=== PATIENT | female | born 1965 | race Hispanic/Latino ===

== ENCOUNTER 2016-10-23 23:03 | Emergency (ER) | payer BC ==
[2016-10-23 23:03] VITALS: BMI 30.7
[2016-10-23 23:10] VITALS: RESP 18; TEMP 97.9
[2016-10-23] MEDS ORDERED: Sodium Chloride 0.9% 1,000 ML IV STA (23:27)
[2016-10-23] MEDS ORDERED: DiphenhydrAMINE 50 mg/ml Inj IVP STA (23:27)
--- NOTE | 2016-10-24 01:21 | ED PDOC ---
Arrival/HPI - General Chief Complaint: Allergic Reaction Time Seen by Provider: 10/23/16 23:21 Historian: Patient - History of Present Illness Narrative History of Present Illness (Text): 10/24/16 01:18 51yr old female presents today with allergic reaction. pt states just prior to arrival she took a prevacid because she was having some heart burn. pt states within minutes after taking the medication she developed pruritis erythematous rash from head to toe. pt states she took unknown otc allergy medication before coming to ER. no CP or SOB. no vomiting/diarrhea. no difficulty breathing or swallowing. no new soaps, lotions, detergents or perfumes. no other complaints. Time/Duration: Prior to Arrival Symptom Onset: Sudden Symptom Course: Unchanged Quality: Other (no pain) Past Medical History - Provider Review Nursing Documentation Reviewed: Yes - Travel History Have you recently traveled outside [place] w/in the past 3 mons?: No - Tetanus Immunization Tetanus Immunization: Unknown - Cardiac Hx Hypertension: Yes - Endocrine/Metabolic Hx Diabetes Mellitus Type 2: Yes Other/Comment: Neuropathy - Psychiatric Hx Anxiety: Yes Hx Substance Use: No - Surgical History Hx Section: Yes (x 2) Hx Cholecystectomy: Yes Hx Tonsillectomy: Yes - Anesthesia Hx Anesthesia: No - Suicidal Assessment Feels Threatened In Home Enviroment: No Family/Social History - Physician Review Nursing Documentation Reviewed: Yes Family/Social History: Unknown Family HX Smoking Status: Never Smoked Hx Alcohol Use: No Hx Substance Use: No Hx Substance Use Treatment: No Allergies/Home Meds Allergies/Adverse Reactions: Allergies lansoprazole [From Prevacid] Allergy (Verified 10/24/16 01:28) RASH Rash, redness, hives, itching Home Medications: Home Meds Medication Instructions Recorded Confirmed Alprazolam [Xanax] 0.25 mg PO PRN PRN 05/05/14 02/03/16 Metformin Hydrochloride [Metformin] 1,000 mg PO BID 05/05/14 02/03/16 Atorvastatin [Lipitor] 10 mg PO DAILY 03/30/15 02/03/16 Nebivolol [Bystolic] 5 mg PO DAILY 02/03/16 02/03/16 Review of Systems - Review of Systems Constitutional: absent: Fatigue, Fevers ENT: absent: Sore Throat, Sinus Congestion Respiratory: absent: SOB, Cough Cardiovascular: absent: Chest Pain, Palpitations Gastrointestinal: absent: Abdominal Pain, Nausea, Vomiting Genitourinary Female: absent: Dysuria Musculoskeletal: absent: Arthralgias Skin: Rash, Pruritis Neurological: absent: Headache, Dizziness Psychiatric: absent: Anxiety, Depression Physical Exam Vital Signs Reviewed: Yes Vital Signs Temp Pulse Resp BP Pulse Ox 10/23/16 23:23 95 H 18 141/64 100 10/23/16 23:07 97.9 F 105 H 18 138/74 99 Temperature: Afebrile Blood Pressure: Normal Pulse: Tachycardic Respiratory Rate: Normal Appearance: Positive for: Well-Appearing, Non-Toxic, Comfortable Pain Distress: None Mental Status: Positive for: Alert and Oriented X 3 - Systems Exam Head: Present: Atraumatic Conjunctiva: Present: Normal Mouth: Present: Moist Mucous Membranes Pharnyx: Present: Normal. No: ERYTHEMA, EXUDATE, Uvular Deviation, Muffled/ Hoarse Voice, Strider, Soft Palate/Uvular Edema Nose (External): Present: Atraumatic Neck: Present: Normal Range of Motion Respiratory/Chest: Present: Clear to Auscultation, Good Air Exchange. No: Respiratory Distress, Accessory Muscle Use, Wheezes, Retracting, Rhonchi, Tachypneic Cardiovascular: Present: Regular Rate and Rhythm Abdomen: No: Tenderness Upper Extremity: Present: Normal ROM Lower Extremity: Present: Normal ROM Neurological: Present: GCS=15 Skin: Present: Warm, Dry, Rashes (diffuse blanching erythema with pinpoint papules noted to face, arms, chest, neck, back, legs, abdomen. ) Psychiatric: Present: Alert, Oriented x 3 Medical Decision Making ED Course and Treatment: 10/24/16 01:21 Patient is nontoxic well-appearing in no distress with stable vital signs no angioedema. Lungs are clear to auscultation bilaterally there is no wheezing noted. The airway is patent Benadryl 25 mg IV Solu-Medrol 125 mg IV Patient reassessment: After medications patient is feeling much better the lungs are clear to auscultation bilaterally the airway is patent the patient is speaking in full sentences. Rash has greatly improved. vitals stable. I advised taking Benadryl every 6 hours as needed for itch as well as prednisone daily x4 days. Advised patient to follow up with primary care physician within the next 2 days and return if symptoms worsen persist or if new symptoms develop Patient verbalizes understanding of discharge instructions and need for immediate followup. all aspects of this case were discussed the attending of record. Impression :Allergic reaction Benadryl every 6 hours as needed for itch Prednisone once daily x4 days Pepcid one tablet daily Follow up with the primary care physician tomorrow Return if symptoms worsen persist or if new symptoms develop: Shortness of breath, feeling of throat closing, difficulty speaking or any other concerning symptoms develop - Medication Orders Current Medication Orders: Discontinued Medications Diphenhydramine HCl (Benadryl) 25 mg IVP STAT STA Stop: 10/23/16 23:28 Last Admin: 10/23/16 23:39 Dose: 25 mg Sodium Chloride (Sodium Chloride 0.9%) 1,000 mls @ 999 mls/hr IV .Q1H1M STA Stop: 10/24/16 00:27 Last Admin: 10/23/16 23:39 Dose: 999 mls/hr Methylprednisolone (Solu-Medrol) 125 mg IVP STAT STA Stop: 10/23/16 23:28 Last Admin: 10/23/16 23:39 Dose: 125 mg Disposition/Present on Arrival - Present on Arrival Any Indicators Present on Arrival: No History of DVT/PE: No History of Uncontrolled Diabetes: No Urinary Catheter: No History of Decub. Ulcer: No History Surgical Site Infection Following: None - Disposition Have Diagnosis and Disposition been Completed?: Yes Diagnosis: Allergic reaction Disposition: HOME/ ROUTINE Disposition Time: 01:23 Patient Plan: Discharge Patient Problems: Current Active Problems Problem Status Onset Allergic reaction Acute Condition: GOOD Discharge Instructions (ExitCare): General Allergic Reaction (ED) Additional Instructions: Benadryl every 6 hours as needed for itch Prednisone once daily x4 days Pepcid one tablet daily Follow up with the primary care physician tomorrow Return if symptoms worsen persist or if new symptoms develop: Shortness of breath, feeling of throat closing, difficulty speaking or any other concerning symptoms develop Prescriptions: DiphenhydrAMINE [Benadryl] 25 mg PO Q6H #20 cap Famotidine [Pepcid] 20 mg PO DAILY #30 tab predniSONE [predniSONE Tab] 3 tab PO DAILY #12 tab Referrals: Ángel Hernandez MD [Family Provider] - Follow up with primary Gerald Bird MD [Staff Provider] - Follow up with primary
[2016-10-24 01:27] VITALS: BP 119/71; PULSE 85; O2SAT 98
== END 2016-10-24 01:46 | disposition home or self-care (01) ==
LOC: ED 23:03
DX: T78.49XA Other allergy, initial encounter (principal); X58.XXXA Exposure to other specified factors, initial encounter
CPT/HCPCS: 96361; 96374; 96375; 99285; J1200; J2930; J7040

== ENCOUNTER 2017-01-31 01:22 | Emergency (ER) | payer BC ==
[2017-01-31 01:29] VITALS: BMI 37.2
[2017-01-31 01:32] VITALS: RESP 18; TEMP 98.2
--- NOTE | 2017-01-31 01:47 | ED PDOC ---
Arrival/HPI - General Chief Complaint: Palpitations Time Seen by Provider: 01/31/17 01:28 Historian: Patient - History of Present Illness Narrative History of Present Illness (Text): 01/31/17 01:46 Leah Bianchi is a 52 year old female, whose past medical history includes diabetes and hypertension, who presents to the ED complaining of palpitations. Patient states she woke up tonight feeling anxious with rapid heart rate, felt nervous and sweaty. Patient took Xanax and felt better. Patient states symptoms were secondary to anxiety, and notes she has experienced symptoms in the past. Patient denies any chest pain, shortness of breath, fever, chills, abdominal pain, nausea, vomiting, diarrhea, urinary symptoms, back pain, neck pain, headache, dizziness, or any other complaints. Patient feels fine currently. PMD: Dr. Hernandez Area Field Worker: Dr. Kumar Time/Duration: Other (tonight) Symptom Onset: Gradual Symptom Course: Improving Activities at Onset: Light Context: Home Past Medical History - Provider Review Nursing Documentation Reviewed: Yes - Tetanus Immunization Tetanus Immunization: Unknown - Cardiac Hx Hypertension: Yes - Endocrine/Metabolic Hx Diabetes Mellitus Type 2: Yes Other/Comment: Neuropathy - Psychiatric Hx Anxiety: Yes Hx Substance Use: No - Surgical History Hx Section: Yes (x 2) Hx Cholecystectomy: Yes Hx Tonsillectomy: Yes - Anesthesia Hx Anesthesia: No - Suicidal Assessment Feels Threatened In Home Enviroment: No Family/Social History - Physician Review Nursing Documentation Reviewed: Yes Family/Social History: Unknown Family HX Smoking Status: Never Smoked Hx Alcohol Use: No Hx Substance Use: No Hx Substance Use Treatment: No Allergies/Home Meds Allergies/Adverse Reactions: Allergies lansoprazole [From Prevacid] Allergy (Verified 10/24/16 01:28) RASH Rash, redness, hives, itching Home Medications: Home Meds Medication Instructions Recorded Confirmed Alprazolam [Xanax] 0.25 mg PO PRN PRN 05/05/14 01/31/17 Metformin Hydrochloride [Metformin] 1,000 mg PO BID 05/05/14 01/31/17 Atorvastatin [Lipitor] 10 mg PO DAILY 03/30/15 01/31/17 Nebivolol [Bystolic] 5 mg PO DAILY 02/03/16 01/31/17 Review of Systems - Physician Review All systems were reviewed & negative as marked: Yes - Review of Systems Constitutional: Normal. absent: Fevers Eyes: Normal ENT: Normal Respiratory: Normal. absent: SOB, Cough Cardiovascular: Palpitations. absent: Chest Pain Gastrointestinal: Normal. absent: Abdominal Pain, Diarrhea, Nausea, Vomiting Genitourinary Female: Normal. absent: Dysuria, Frequency, Hematuria, Urine Output Changes Musculoskeletal: Normal. absent: Back Pain, Neck Pain Skin: Normal. absent: Rash Neurological: Normal. absent: Headache, Dizziness Endocrine: Normal Hemo/Lymphatic: Normal Psychiatric: Anxiety Physical Exam Vital Signs Reviewed: Yes Vital Signs Temp Pulse Resp BP Pulse Ox 01/31/17 03:59 86 18 136/84 99 01/31/17 01:29 98.2 F 98 H 18 146/82 100 Temperature: Afebrile Blood Pressure: Normal Pulse: Regular Respiratory Rate: Normal Appearance: Positive for: Well-Appearing, Non-Toxic, Comfortable Pain Distress: None Mental Status: Positive for: Alert and Oriented X 3 - Systems Exam Head: Present: Atraumatic, Normocephalic Pupils: Present: PERRL Extroacular Muscles: Present: EOMI Conjunctiva: Present: Normal Mouth: Present: Moist Mucous Membranes Neck: Present: Normal Range of Motion Respiratory/Chest: Present: Clear to Auscultation, Good Air Exchange. No: Respiratory Distress, Accessory Muscle Use Cardiovascular: Present: Regular Rate and Rhythm, Normal S1, S2. No: Murmurs Abdomen: Present: Normal Bowel Sounds. No: Tenderness, Distention, Peritoneal Signs Back: Present: Normal Inspection Upper Extremity: Present: Normal Inspection. No: Cyanosis, Edema Lower Extremity: Present: Normal Inspection. No: Edema Neurological: Present: GCS=15, CN II-XII Intact, Speech Normal Skin: Present: Warm, Dry, Normal Color. No: Rashes Psychiatric: Present: Alert, Oriented x 3, Normal Insight, Normal Concentration Medical Decision Making ED Course and Treatment: 01/31/17 01:47 Impression: 52 year old female c/o palpitations tonight. Differential Diagnosis included but are not limited to: anxiety Plan: -- EKG -- CXR -- Labs, cardiac enzymes -- Reassess and disposition Progress Notes: Reviewed EKG, NSR at [address]-segment elevations or depressions, no T-wave inversions, normal intervals. 01/31/17 03:25 Reviewed radiology, CXR shows no acute processes. 01/31/17 03:30 Pt was observed on the monitor while in the ER without any recurrence in symptoms. Pt states she would prefer to f/u with her PMD this week as scheduled. I have discussed the results and plan with the patient, who expresses understanding. Patient is stable for discharge. Patient was instructed to follow up with physician/clinic in 1-2 days as scheduled or return if symptoms persist/worsen or new concerning symptoms arise. - Lab Interpretations Lab Results: 01/31/17 02:29 01/31/17 02:29 Lab Results 01/31/17 02:29: WBC 10.9, RBC 4.33, Hgb 12.5, Hct 36.6, MCV 84.5, MCH 28.9, MCHC 34.2, RDW 13.6, Plt Count 304, MPV 8.8 01/31/17 02:29: Sodium 139, Potassium 3.8, Chloride 102, Carbon Dioxide 26, Anion Gap 15, BUN 10, Creatinine 0.7, Est GFR ( Amer) > 60, Est GFR (Non- Af Amer) > 60, Random Glucose 150 H, Calcium 8.9, Total Bilirubin 0.5, AST 33, ALT 39, Alkaline Phosphatase 59, Lactate Dehydrogenase 383, Total Creatine Kinase 25 L, Troponin I < 0.01, Total Protein 6.6, Albumin 4.0, Globulin 2.7, Albumin/Globulin Ratio 1.5 01/31/17 02:29: PT 9.9, INR 0.92 L, APTT 25.0 I have reviewed the lab results: Yes - RAD Interpretation Radiology Orders: 01/31/17 01:53 CHEST PORTABLE [RAD] Stat Restaurant Expeditor: ED Physician - EKG Interpretation Interpreted by ED Physician: Yes Type: 12 lead EKG - Scribe Statement The provider has reviewed the documentation as recorded by the Margoibjosette Villanueva All medical record entries made by the Margoibjosette were at my direction and personally dictated by me. I have reviewed the chart and agree that the record accurately reflects my personal performance of the history, physical exam, medical decision making, and the department course for this patient. I have also personally directed, reviewed, and agree with the discharge instructions and disposition. Disposition/Present on Arrival - Present on Arrival Any Indicators Present on Arrival: No History of DVT/PE: No History of Uncontrolled Diabetes: No Urinary Catheter: No History of Decub. Ulcer: No History Surgical Site Infection Following: None - Disposition Have Diagnosis and Disposition been Completed?: Yes Diagnosis: Palpitations, Anxiety Disposition: HOME/ ROUTINE Disposition Time: 03:36 Patient Plan: Discharge Condition: GOOD Discharge Instructions (ExitCare): Palpitations (ED), Anxiety (ED) Additional Instructions: Continue your prescribed meds/follow up with your doctor this week as scheduled/ any recurrent symptoms return to the emergency room Forms: [email or web address] ([place])
[2017-01-31 02:37] LABS: HEMATOCRIT 36.6 % (36.0-48.0); MEAN CELL VOLUME 84.5 fl (80.0-105.0); MEAN CORPUSCULAR HEMOGLOBIN 28.9 pg (25.0-35.0); MEAN CORPUSCULAR HGB CONC 34.2 g/dl (31.0-37.0); MEAN PLATELET VOLUME 8.8 fl (7.0-11.0); RED CELL DISTRIBUTION WIDTH 13.6 % (11.5-14.5); WHITE BLOOD COUNT 10.9 10^3/ul (4.5-11.0)
[2017-01-31 02:43] LABS: ALB/GLOB RATIO 1.5 (1.1-1.8); ALKALINE PHOSPHATASE 59 U/L (38-126); ALT/SGPT 39 U/L (7-56); AST/SGOT 33 U/L (14-36); BILIRUBIN,TOTAL 0.5 mg/dL (0.2-1.3); BLOOD UREA NITROGEN 10 mg/dL (7-21); CALCIUM 8.9 mg/dL (8.4-10.5); CARBON DIOXIDE 26 mmol/L (21-33); CHLORIDE 102 mmol/L (98-107); GFR AFRICAN-AMERICAN > 60; GLUCOSE,RANDOM 150 mg/dL (70-110); POTASSIUM 3.8 mmol/L (3.6-5.0); SODIUM 139 mmol/L (132-148); TOTAL PROTEIN 6.6 g/dL (5.8-8.3)
[2017-01-31 02:44] LABS: INR 0.92 (0.93-1.08)
[2017-01-31 03:03] LABS: TROPONIN I < 0.01 ng/mL
[2017-01-31 03:59] VITALS: BP 136/84; PULSE 86; O2SAT 99
--- NOTE | 2017-01-31 10:55 | RAD ---
HISTORY: palpitations COMPARISON: Comparison chest 01/21/2016 FINDINGS: LUNGS: No active pulmonary disease. PLEURA: No significant pleural effusion identified, no pneumothorax apparent. CARDIOVASCULAR: Normal. OSSEOUS STRUCTURES: No significant abnormalities. VISUALIZED UPPER ABDOMEN: Normal. OTHER FINDINGS: None. IMPRESSION: No active disease.
--- NOTE | 2017-01-31 11:46 | CARD ---
APPROVED REPORT EKG Measurement Heart [id number] <Conclusion> Normal sinus rhythm Normal ECG
== END 2017-01-31 03:59 | disposition home or self-care (01) ==
LOC: ED 01:22
DX: R00.2 Palpitations (principal); F41.9 Anxiety disorder, unspecified; I10 Essential (primary) hypertension; E11.9 Type 2 diabetes mellitus without complications

== ENCOUNTER 2018-05-08 23:48 | Emergency (ER) | payer BC ==
[2018-05-08 23:48] VITALS: BMI 37.2
[2018-05-09 00:03] VITALS: PULSE 85
--- NOTE | 2018-05-09 00:31 | ED PDOC ---
Arrival/HPI - General Chief Complaint: Palpitations Time Seen by Provider: 05/08/18 23:54 Historian: Patient - History of Present Illness Narrative History of Present Illness (Text): 05/09/18 00:15 01/31/17 01:46 53 year old female, whose past medical history includes diabetes,anxiety, hypertension, who presents to the emergency department complaining of palpitations. Patient reports she his currently on a holter monitor for PVC's . Patient reports she checked her heart rate which was 100 and was anxious and worried, so she came to the ER for evaluation. She reports she had a stress test and echo done last year which were within normal limits. States she was told by her doctors that there was no concern as this can be a normal occurrence. Patient, however,states it makes her anxious. Patient denies any fever, chills, chest pain, shortness of breath, nausea, vomiting, diarrhea, urinary symptoms, back pain, neck pain, headache, dizziness, or any other complaints. PMD: Dr. Hickman Temperature Logging Operator: Dr. Kumar but switching to Dr. Gomez Time/Duration: 1 hour Symptom Onset: Sudden Symptom Course: Intermittent Activities at Onset: Light Context: Home Past Medical History - Provider Review Nursing Documentation Reviewed: Yes - Infectious Disease Hx of Infectious Diseases: None - Tetanus Immunization Tetanus Immunization: Unknown - Cardiac Hx Hypertension: Yes - Endocrine/Metabolic Hx Diabetes Mellitus Type 2: Yes Other/Comment: Neuropathy - Psychiatric Hx Anxiety: Yes Hx Substance Use: No - Surgical History Hx Section: Yes (x 2) Hx Cholecystectomy: Yes Hx Tonsillectomy: Yes - Anesthesia Hx Anesthesia: No - Suicidal Assessment Feels Threatened In Home Enviroment: No Family/Social History - Physician Review Nursing Documentation Reviewed: Yes Family/Social History: No Known Family HX Smoking Status: Never Smoked Hx Alcohol Use: No Hx Substance Use: No Hx Substance Use Treatment: No Allergies/Home Meds Allergies/Adverse Reactions: Allergies lansoprazole [From Prevacid] Allergy (Verified 05/09/18 00:03) RASH Rash, redness, hives, itching Home Medications: Home Meds Medication Instructions Recorded Confirmed Alprazolam [Xanax] 0.25 mg PO PRN PRN 05/05/14 01/31/17 Metformin Hydrochloride [Metformin] 1,000 mg PO BID 05/05/14 01/31/17 Atorvastatin [Lipitor] 10 mg PO DAILY 03/30/15 01/31/17 Nebivolol [Bystolic] 5 mg PO DAILY 02/03/16 01/31/17 Review of Systems - Physician Review All systems were reviewed & negative as marked: Yes - Review of Systems Constitutional: absent: Fevers, Other (Chills) Respiratory: absent: SOB Cardiovascular: Palpitations. absent: Chest Pain Gastrointestinal: absent: Diarrhea, Nausea, Vomiting Genitourinary Female: absent: Dysuria, Frequency, Hematuria Musculoskeletal: absent: Back Pain, Neck Pain Neurological: absent: Headache, Dizziness Psychiatric: Anxiety Physical Exam Vital Signs Reviewed: Yes Vital Signs Pulse Resp BP Pulse Ox 05/09/18 00:00 85 20 138/78 100 Temperature: Afebrile Blood Pressure: Normal Pulse: Regular Respiratory Rate: Normal Appearance: Positive for: Well-Appearing, Non-Toxic, Comfortable Pain Distress: None Mental Status: Positive for: Alert and Oriented X 3 - Systems Exam Head: Present: Atraumatic, Normocephalic Pupils: Present: PERRL Extroacular Muscles: Present: EOMI Conjunctiva: Present: Normal Mouth: Present: Moist Mucous Membranes Neck: Present: Normal Range of Motion Respiratory/Chest: Present: Clear to Auscultation, Good Air Exchange. No: Respiratory Distress, Accessory Muscle Use Cardiovascular: Present: Regular Rate and Rhythm, Normal S1, S2. No: Murmurs Abdomen: No: Tenderness, Distention, Peritoneal Signs Back: Present: Normal Inspection Upper Extremity: Present: Normal Inspection. No: Cyanosis, Edema Lower Extremity: Present: Normal Inspection. No: Edema Neurological: Present: GCS=15, CN II-XII Intact, Speech Normal Skin: Present: Warm, Dry, Normal Color. No: Rashes Psychiatric: Present: Alert, Oriented x 3, Normal Insight, Normal Concentration Medical Decision Making ED Course and Treatment: 05/09/18 00:15 Impression: 53 year old female presents complaining of reoccurring palpitations and describes them as a fluttering sensation. Patient is currently on a holter monitor for PVC's. Plan: -- EKG -- Labs -- Chest X-ray -- Reassess and disposition Prior Visits: Notes and results from previous visits were reviewed. Progress Notes: 05/09/18 00:16 EKG shows NSR at 91 BPM with occasional PVCs. No acute changes. Interpreted by me. 05/09/18 01:10 CXR Impression: As read by me, no acute process. 05/09/18 02:24 patient states she feels fine after having taken her Xanax earlier. Patient is in no acute distress. I have discussed the results and plan with the patient, who expresses understanding. Patient in agreement with plan to be discharged home. Patient is stable for discharge. Patient was instructed to follow up with physician or return if symptoms worsen or new concerning symptoms arise. - Scribe Statement The provider has reviewed the documentation as recorded by the Scribe Khanh Samson Provider Scribe Attestation: All medical record entries made by the Scribe were at my direction and personally dictated by me. I have reviewed the chart and agree that the record accurately reflects my personal performance of the history, physical exam, medical decision making, and the department course for this patient. I have also personally directed, reviewed, and agree with the discharge instructions and disposition. Disposition/Present on Arrival - Present on Arrival Any Indicators Present on Arrival: No History of DVT/PE: No History of Uncontrolled Diabetes: No Urinary Catheter: No History of Decub. Ulcer: No History Surgical Site Infection Following: None - Disposition Have Diagnosis and Disposition been Completed?: Yes Diagnosis: Heart palpitations, Anxiety Disposition: HOME/ ROUTINE Disposition Time: 02:22 Patient Plan: Discharge Condition: GOOD Discharge Instructions (ExitCare): Palpitations (DC) Additional Instructions: Follow up with your doctor this week/if any worsening symptoms return to the emergency room Referrals: Sudhir Hickman MD [Primary Care Provider] - Follow up with primary Forms: [employer] ([place])
[2018-05-09 00:57] LABS: HEMOGLOBIN 12.5 g/dL (12.0-16.0); MEAN CELL VOLUME 82.9 fl (80.0-105.0); MEAN CORPUSCULAR HEMOGLOBIN 27.7 pg (25.0-35.0); MEAN CORPUSCULAR HGB CONC 33.4 g/dl (31.0-37.0); MEAN PLATELET VOLUME 8.9 fl (7.0-11.0); RBC 4.51 10^6/uL (3.5-6.1); RED CELL DISTRIBUTION WIDTH 13.4 % (11.5-14.5); WHITE BLOOD COUNT 12.9 10^3/uL (4.5-11.0)
[2018-05-09 01:05] LABS: INR 0.91; PARTIAL THROMBOPLASTIN TIME 29.3 Seconds (25.1-36.5); PROTHROMBIN TIME 10.3 SECONDS (9.4-12.5)
[2018-05-09 01:08] LABS: ALB/GLOB RATIO 1.4 (1.1-1.8); ALBUMIN 4.2 g/dL (3.0-4.8); ALT/SGPT 37 U/L (7-56); AST/SGOT 21 U/L (14-36); BLOOD UREA NITROGEN 13 mg/dL (7-21); CALCIUM 8.8 mg/dL (8.4-10.5); GFR NON-AFRICAN AMERICAN > 60
[2018-05-09 01:25] LABS: TROPONIN I < 0.01 ng/mL
[2018-05-09 02:45] VITALS: BP 121/63; RESP 18; TEMP 98.2; O2SAT 98
--- NOTE | 2018-05-09 10:18 | RAD ---
Date of service: 05/09/2018 HISTORY: palpitations COMPARISON: Chest radiograph dated 01/31/2017. FINDINGS: LUNGS: No active pulmonary disease. PLEURA: No significant pleural effusion identified, no pneumothorax apparent. CARDIOVASCULAR: No aortic atherosclerotic calcification present. Normal cardiac size. No pulmonary vascular congestion. OSSEOUS STRUCTURES: Unchanged. VISUALIZED UPPER ABDOMEN: Normal. OTHER FINDINGS: None. IMPRESSION: No active disease.
--- NOTE | 2018-05-09 10:36 | CARD ---
APPROVED REPORT Date of service: 05/09/2018 EKG Measurement Heart [id number] <Conclusion> Sinus rhythm with occasional premature ventricular complexes Otherwise normal ECG
== END 2018-05-09 02:45 | disposition home or self-care (01) ==
LOC: ED 23:48
DX: R00.2 Palpitations (principal); F41.9 Anxiety disorder, unspecified; I10 Essential (primary) hypertension; E11.9 Type 2 diabetes mellitus without complications